=== PATIENT | female | born 1960 | race Caucasian/White ===

== ENCOUNTER 2022-04-17 12:06 | Outpatient (CLI) | payer BC ==
[2022-04-17 21:28] LABS: SARS-CoV-2 PCR by NAA Not Detected (NotDetected)
== END 2022-04-17 12:07 | disposition home or self-care (01) ==
LOC: CSHLAB 12:06
PROVIDERS: ATTEND Internal Medicine Gastroenterology
DX: Z20.822 Contact with and (suspected) exposure to COVID-19 (principal); Z12.11 Encounter for screening for malignant neoplasm of colon
CPT/HCPCS: U0003; U0005

== ENCOUNTER 2022-04-21 05:57 | Day surgery (SDC) | payer BC ==
[2022-04-17 14:28] VITALS: BMI 21.1
[2022-04-21] MEDS ORDERED: Lidocaine 1% PF 5 ML VIAL ONE (06:48)
[2022-04-21] MEDS ORDERED: PROPOFOL 40 ML ONE (06:48)
[2022-04-21] MEDS ORDERED: Lidocaine 1% MPF 2 ML VIAL ONE (07:00)
== END 2022-04-21 08:50 | disposition home or self-care (01) ==
LOC: CSHSDC 05:57
PROVIDERS: ATTEND Internal Medicine Gastroenterology
PROC: 0DBL8ZZ Excision of Transverse Colon, Via Natural or Artificial Opening Endoscopic (ICD-10-PCS; principal; 2022-04-21)
DX: Z12.11 Encounter for screening for malignant neoplasm of colon (principal); Q43.8 Other specified congenital malformations of intestine
CPT/HCPCS: 88305; J2704

== ENCOUNTER 2022-07-23 10:24 | Outpatient (CLI) | payer BC | END 2022-07-23 10:25 | disposition home or self-care (01) | LOC: CSHMAMMO 10:24 | PROVIDERS: ATTEND Nurse Practitioner Family | DX: Z12.31 Encounter for screening mammogram for malignant neoplasm of breast (principal) | CPT/HCPCS: 77063; 77067 ==

== ENCOUNTER 2023-08-17 13:22 | Outpatient (CLI) | payer BC | END 2023-08-17 13:23 | disposition home or self-care (01) | LOC: CSHMAMMO 13:22 | PROVIDERS: ATTEND Family Medicine Sports Medicine | DX: Z12.31 Encounter for screening mammogram for malignant neoplasm of breast (principal) | CPT/HCPCS: 77063; 77067 ==

== ENCOUNTER 2024-09-01 12:49 | Outpatient (CLI) | payer BC | END 2024-09-01 12:50 | disposition home or self-care (01) | LOC: CSHMAMMO 12:49 | PROVIDERS: ATTEND Family Medicine Sports Medicine | DX: Z12.31 Encounter for screening mammogram for malignant neoplasm of breast (principal) | CPT/HCPCS: 77063; 77067 ==

== ENCOUNTER 2024-09-14 13:56 | Outpatient (CLI) | payer BC | END 2024-09-14 13:57 | disposition home or self-care (01) | LOC: CSHMAMMO 13:56 | PROVIDERS: ATTEND Family Medicine Sports Medicine | DX: M85.851 Other specified disorders of bone density and structure, right thigh (principal); M85.852 Other specified disorders of bone density and structure, left thigh; M81.0 Age-related osteoporosis without current pathological fracture; Z78.0 Asymptomatic menopausal state | CPT/HCPCS: 77080 ==

== ENCOUNTER 2025-09-06 13:51 | Outpatient (CLI) | payer BC | END 2025-09-06 13:52 | disposition home or self-care (01) | LOC: CSHMAMMO 13:51 | PROVIDERS: ATTEND Family Medicine Sports Medicine | DX: Z12.31 Encounter for screening mammogram for malignant neoplasm of breast (principal) | CPT/HCPCS: 77063; 77067 ==